=== PATIENT | male | born 1995 | race Caucasian/White ===

== ENCOUNTER 2024-03-31 11:16 | Emergency (ER) | payer MEDICAID ==
[~2024-03-31] VITALS: Ht 170.2 cm; Wt 120.0 kg
[2024-03-31 11:18] VITALS: O2SAT 100
[2024-03-31] MEDS: MORPHINE SULFATE 4 MG/ML INJ (FOR IV/IM USE) IV STA (11:31)
[2024-03-31 11:42] LABS: BASOPHILS % 0.7 % (0.0-2.0); EOSINOPHILS % 2.6 % (0.0-5.0); HEMATOCRIT. 43.6 % (42.0-52.0); HEMOGLOBIN. 14.6 g/dL (14.0-18.0); LYMPHOCYTES % 21.8 % (20.0-50.0); MEAN CORPUSCULAR HEMOGLOBIN 27.4 pg (28.0-32.0); MEAN CORPUSCULAR HGB CONC 33.5 g/dL (31.0-37.0); MEAN CORPUSCULAR VOLUME 81.9 fL (80.0-94.0); MEAN PLATELET VOLUME 7.7 fl (7.4-10.4); MONOCYTES % 7.1 % (2.0-8.0); NEUTROPHILS % 67.8 % (40.0-76.0); PLATELET 271 x1000/uL (130-400); RED BLOOD CELL COUNT 5.33 mill/uL (4.7-6.1); RED CELL DISTRIBUTION WIDTH 13.3 % (11.6-14.6); WHITE BLOOD COUNT 7.3 x1000/uL (4.5-11.0)
[2024-03-31] MEDS: ONDANSETRON HCL 4MG/2ML INJ IV ONE (11:44)
[2024-03-31 11:46] LABS: CHLORIDE 108 mEq/L (98-107); POTASSIUM 3.8 mEq/L (3.5-5.1); SODIUM 142 mEq/L (136-145)
[2024-03-31 11:47] LABS: CARBON DIOXIDE 26 mEq/L (21-32)
[2024-03-31 11:48] LABS: CALCIUM 9.3 mg/dL (8.7-10.4)
[2024-03-31 11:52] LABS: CREATININE 1.2 mg/dL (0.6-1.3); GLUCOSE 144 mg/dL (70-105); PROTHROMBIN TIME 10.9 sec (9.6-11.0); UREA NITROGEN BLOOD 13 mg/dL (9-23)
[2024-03-31] MEDS: KETOROLAC 15MG/ML VIAL IV ONE (12:55)
[2024-03-31] MEDS ORDERED: TAMS-11 PO (13:35)
[2024-03-31] MEDS ORDERED: T3 PO (13:35)
[2024-03-31] MEDS ORDERED: TOPUD PO (13:36)
[2024-03-31 14:02] VITALS: BP 111/63; PULSE 75; RESP 20; TEMP 36.7; O2SAT 100
== END 2024-03-31 14:03 | disposition home or self-care (01) ==
LOC: ER 11:20
DX: Z87.442 Personal history of urinary calculi (principal); N20.0 Calculus of kidney
CPT/HCPCS: 99285; 74176; 96374; 93976; 96375; 80048; 85025; 85610; 36415; 76870; J1885; J2405; J2270